=== PATIENT | female | born 1955 | race Caucasian/White ===

== ENCOUNTER → 2021-01-14 12:41 | Outpatient (CLI) | payer MEDICARE, OTHER, SELFPAY ==
--- NOTE | ~2021-01-14 | MM_ITS ---
EXAMINATION: MM screening disha BI w melva HISTORY: Screening TECHNIQUE: Craniocaudal and mediolateral oblique 3-D tomosynthesis images were obtained and synthetic 2-D images were generated. CAD analysis was submitted and interpreted. COMPARISON: Comparison to multiple prior studies sequentially, with oldest reviewed study dated 06/15. BREAST PARENCHYMAL COMPOSITION: There are scattered areas of fibroglandular density. FINDINGS: Stable bilateral breast asymmetries and calcifications. There is no evidence of suspicious mass, calcification, or architectural distortion to suggest malignancy in either breast. There has be en no suspicious interval change. IMPRESSION: 1. No mammographic evidence of malignancy. 2. Recommend routine screening mammography in one year. BI-RADS Category 2: Benign finding(s). Reviewed, dictated and finalized at location D. L MEAT PACKER
== END ==
PROVIDERS: PCP Family Medicine; Visit Provider Family Medicine
DX: Z12.31 Encounter for screening mammogram for malignant neoplasm of breast (principal)
CPT/HCPCS: 77063; 77067

== ENCOUNTER → 2021-01-26 12:02 | Outpatient (CLI) | payer MEDICARE, OTHER, SELFPAY ==
--- NOTE | ~2021-01-26 | DEXA_ITS ---
Bone Density Report Name: Carmelina Obrien Age: 65 Sex: Female Ethnicity: White Date of : 1955 Indication: postmenopausal osteoporosis; monitoring treatment; parental hip fracture; height loss; Referring Provider: Deidre Wong Study: Bone densitometry was performed. Exam Date: January 26, 2021 Accession number: [id number] Bone Density: Region BMD T-score Z-score Classification AP Spine (L1-L4) 0.959 -0.8 1.2 Normal Femoral Neck (Left) 0.564 -2.6 -0.9 Osteoporosis Total Hip (Left) 0.642 -2.5 -1.1 Osteoporosis Femoral Neck (Right) 0.708 -1.3 0.4 Osteopenia Total Hip (Right) 0.713 -1.9 -0.5 Osteopenia Total Hip Mean 0.678 -2.2 -0.8 Osteopenia World Health Organization criteria for BMD impression classify patients as: Normal (T-score at or above -1.0), Osteopenia (T-score between -1.0 and -2.5), or Osteoporosis (T-score at or below -2.5). 10-year Fracture Risk: FRAX not reported because: Some T-score for Spine Total or Hip Total or Femoral Neck at or below -2.5 Treated for osteoporosis Previous Exams: Region Exam Age BMD T-score BMD Change BMD Change Date g/cm2 vs Baseline vs Previous AP Spine(L1-L4) 01/26/2021 65 0.959 -0.8 0.048* 0.048* 09/22/2017 62 0.911 -1.2 Total Hip(Left) 01/26/2021 65 0.642 -2.5 0.014 0.014 09/22/2017 62 0.628 -2.6 Total Hip(Right) 01/26/2021 65 0.713 -1.9 0.022 0.022 09/22/2017 62 0.691 -2.1 *Denotes significance at 95% confidence level, LSC for AP Spine = 0.022 g/cm2, LSC for Total Hip = 0.027 g/cm2 Clinical Information Provided by Patient: Parent has had a hip fracture Smokes Is being treated for osteoporosis Has used the following medications: Fosamax (i.e. alendronate), Vitamin D, Calcium Patient maximum height was 66 Menopause Age: 48 Does not regularly consume dairy products Drinks caffeinated beverages Onset of menses at age 12 Number of children 3 Impression: The patient has osteoporosis, based on the Left Femoral Neck T-score. The patient has risk factors, including: parental hip fracture, smoking. No significant bone loss was observed. Discussion: PATIENT UNDER TREATMENT WITH NO SIGNIFICANT BMD LOSS SINCE LAST EXAM. In an untreated patient, BMD typically declines with age. A lack of decline or gain is usually a sign that treatment is efficacious and fracture risk is reduced. It is important to ask patients whether they a
== END ==
PROVIDERS: PCP Family Medicine; Visit Provider Family Medicine
DX: M81.0 Age-related osteoporosis without current pathological fracture (principal); M85.852 Other specified disorders of bone density and structure, left thigh
CPT/HCPCS: 77080

== ENCOUNTER → 2021-05-12 01:06 | Outpatient (CLI) | payer MEDICARE, OTHER, SELFPAY ==
[2021-05-12 17:24] LABS: SARS-CoV-2 RNA PCR Negative
== END ==
PROVIDERS: PCP Family Medicine; Visit Provider Internal Medicine Gastroenterology
DX: Z01.812 Encounter for preprocedural laboratory examination (principal); Z20.822 Contact with and (suspected) exposure to COVID-19
CPT/HCPCS: C9803; U0003; U0005

== ENCOUNTER 2021-05-15 00:30 | Day surgery (SDC) | payer MEDICARE, OTHER, SELFPAY ==
[2021-05-04 13:18] VITALS: BMI 24.9
[2021-05-15 08:00] VITALS: BP 142/65; PULSE 76; RESP 16; TEMP 36.1; O2SAT 98; BMI 25.0
[2021-05-15] MEDS: LACTATED RINGERS 1,000 ML 150 ML IV CONT (08:07)
--- NOTE | 2021-05-15 08:29 | PM.HPGS ---
History of Present Illness History of Present Illness Consent: Risks, benefits, and alternatives have been discussed and questions answered. Patient agrees to proceed with procedure. Chief complaint: hx colon polyp Narrative: Carmelina Obrien is a 66 year old female here for colon cancer screening. She has a family history of colon cancer and has had colon polyps herself Review of Systems Review of Systems: All systems reviewed & are unremarkable except as noted in HPI and below PMFSH Past Medical History Medical History Essential (primary) hypertension Family history of colon cancer in mother History of colon polyps Osteoporosis Other and unspecified hyperlipidemia Stress incontinence in female Vitamin D deficiency Surgical History Surgical History Hx of tonsillectomy (~1957) Family History Family History Father Family history of premature coronary heart disease, Onset Age: 63 Hypertension Family history of elevated blood lipids Patient's father is Family history of cardiovascular disease Mother Carcinoma of colon Patient's mother is Family history of Alzheimer's disease Grandparent Family history of malignant neoplasm of cervix Social History Social History Smoking packs per day: 1 Smoking cigarettes per day: 20.0 Years smoked: 30 Smoking pack-years: 30.00 Smoking status: Former smoker Tobacco type: e-cigarettes/vaping Smoking end date: 11/28/11 Alcohol intake: former Substance use: never Substance use type: does not use Living arrangements: with family Gender identity (if verbalized by the patient): Female Spiritual care concerns: No Meds Home Medications and Allergies Home Medications Medication Instructions Recorded Confirmed Type cholecalciferol (vitamin D3) 125 125 mcg PO DAILY 04/04/20 05/05/21 History mcg (5,000 unit) capsule ibuprofen 200 mg capsule 200 mg PO Q6H PRN 04/04/20 05/05/21 History biotin 10,000 mcg capsule 10,000 mcg PO DAILY cap 11/13/20 05/05/21 History calcium carbonate 600 mg calcium 600 mg PO BID tablet 11/13/20 05/05/21 History (1,500 mg) tablet Natural Vitamin E 180 mg PO DAILY 05/04/21 05/05/21 History cranberry 500 mg PO BID PRN 05/04/21 05/05/21 History magnesium oxide 400 mg PO DAILY 05/04/21 05/05/21 History alendronate 70 mg tablet 70 mg PO WEEKLY #14 tablet 05/07/21 Rx atorvastatin 10 mg tablet 10 mg PO DAILY #90 tablet 05/07/21 Rx losartan 25 mg tablet 12.5 mg PO DAILY #90 tablet 05/07/21 Rx Allergies Allergy/AdvReac Type Severity Reaction Status Date / Time strawberry Allergy Severe Difficulty Verified 05/15/21 07:59 Breathing Vital Signs Vital Signs - 24 hr 05/15/21 08:00 Temperature 36.1 C L Pulse Rate 76 Respiratory Rate 16 Blood Pressure 142/65 H Pulse Oximetry 98 Exam Resp: Auscultation: clear to auscultation bilaterally Cardio: Rate: regular rate Rhythm: regular rhythm GI: GI Palp: Yes Soft to palpation and No Tenderness to palpation present (GI) Assessment and Plan Assessment and plan (1) Colon cancer screening: Code(s): Z12.11 - Encounter for screening for malignant neoplasm of colon Status: Acute Assessment and Plan: Colonoscopy with possible biopsy or polypectomy or cautery or injection of substances.
--- NOTE | 2021-05-15 09:12 | WPDANESEPPF ---
Anes - Initial Pre Proc Eval Procedure: Operation Date: 05/15/21 09:00 Proposed Procedures p Screening Colonoscopy - Endy Lema MD Date/Time: 05/15/21 09:12 Surgeon: Endy Lema MD Pre Op Diagnosis: hx colon polyp Patient Data Age: 66 Gender: F Height: 5 ft 5 in Weight: 68.4 kg Last Vital Signs Temp 97 F L 05/15/21 08:00 Pulse 76 05/15/21 08:00 Resp 16 05/15/21 08:00 BP 142/65 H 05/15/21 08:00 Pulse Ox 98 05/15/21 08:00 Allergies Allergy/AdvReac Type Severity Reaction Status Date / Time strawberry Allergy Severe Difficulty Verified 05/15/21 07:59 Breathing Home Medications Medication Instructions Recorded Confirmed Type cholecalciferol (vitamin D3) 125 125 mcg PO DAILY 04/04/20 05/05/21 History mcg (5,000 unit) capsule ibuprofen 200 mg capsule 200 mg PO Q6H PRN 04/04/20 05/05/21 History biotin 10,000 mcg capsule 10,000 mcg PO DAILY cap 11/13/20 05/05/21 History calcium carbonate 600 mg calcium 600 mg PO BID tablet 11/13/20 05/05/21 History (1,500 mg) tablet Natural Vitamin E 180 mg PO DAILY 05/04/21 05/05/21 History cranberry 500 mg PO BID PRN 05/04/21 05/05/21 History magnesium oxide 400 mg PO DAILY 05/04/21 05/05/21 History alendronate 70 mg tablet 70 mg PO WEEKLY #14 tablet 05/07/21 Rx atorvastatin 10 mg tablet 10 mg PO DAILY #90 tablet 05/07/21 Rx losartan 25 mg tablet 12.5 mg PO DAILY #90 tablet 05/07/21 Rx Patient hx anesthesia problems: none Family hx anesthesia problems: none PMFSH Past Medical History Medical History Essential (primary) hypertension Family history of colon cancer in mother History of colon polyps Osteoporosis Other and unspecified hyperlipidemia Stress incontinence in female Vitamin D deficiency Surgical History Surgical History Hx of tonsillectomy (~1957) Family History Family History Father Family history of premature coronary heart disease, Onset Age: 63 Hypertension Family history of elevated blood lipids Patient's father is Family history of cardiovascular disease Mother Carcinoma of colon Patient's mother is Family history of Alzheimer's disease Grandparent Family history of malignant neoplasm of cervix Social History Social History Smoking packs per day: 1 Smoking cigarettes per day: 20.0 Years smoked: 30 Smoking pack-years: 30.00 Smoking status: Former smoker Tobacco type: e-cigarettes/vaping Smoking end date: 11/28/11 Alcohol intake: former Substance use: never Substance use type: does not use Living arrangements: with family Gender identity (if verbalized by the patient): Female Spiritual care concerns: No Anes - Eval Final PreProcedure Day of Procedure 05/15/21 09:12 Patient weight: overweight Heart: regular rate and rhythm Lungs: clear to auscultation Airway: Mallampati scale class II Neurological: alert and oriented Last oral intake: >/= 8 hours ASA classification: III Emergent: no Anesthetic plan: proceed Anesthesia type and monitoring: general GIVS and standard monitoring Informed Consent: The patient's anesthetic plan and its attendant risks and benefits were discussed with the patient/family/POA. Questions were solicited and answers provided to the satisfaction of the patient/family/POA.
[2021-05-15 09:27] VITALS: BP 106/59; PULSE 78; RESP 16; O2SAT 96
[2021-05-15 09:37] VITALS: BP 112/65; PULSE 76; RESP 16; O2SAT 100
[2021-05-15 09:47] VITALS: BP 120/64; PULSE 75; RESP 18; O2SAT 100
== END 2021-05-15 10:00 | disposition home or self-care (01) ==
PROVIDERS: PCP Family Medicine; Visit Provider Internal Medicine Gastroenterology
PROC: 0DJD8ZZ Inspection of Lower Intestinal Tract, Via Natural or Artificial Opening Endoscopic (ICD-10-PCS; CPT 45378; principal; 2021-05-15 09:00)
DX: Z12.11 Encounter for screening for malignant neoplasm of colon (principal); K57.30 Diverticulosis of large intestine without perforation or abscess without bleeding; Z86.010 Personal history of colon polyps; Z80.0 Family history of malignant neoplasm of digestive organs; I10 Essential (primary) hypertension; M81.0 Age-related osteoporosis without current pathological fracture; E78.5 Hyperlipidemia, unspecified; N39.3 Stress incontinence (female) (male); E55.9 Vitamin D deficiency, unspecified; Z87.891 Personal history of nicotine dependence
CPT/HCPCS: G0105; J2704; J7120

== ENCOUNTER → 2021-12-07 13:23 | Outpatient (CLI) | payer MEDICARE, OTHER, SELFPAY ==
--- NOTE | ~2021-12-07 | XR_ITS ---
EXAMINATION: XR chest 2V DATE: 12/07/2021 13:35 INDICATION: Cough, unspecified. TECHNIQUE: Frontal and lateral views of the chest were obtained. COMPARISON: None. FINDINGS: There is a 2.0 cm nodule in right middle lobe. No pleural effusion or pneumothorax. The hea rt size is normal. IMPRESSION: 1. 2.0 cm nodule in right lung middle lobe suspicious for primary bronchogenic carcinoma. Noncontras t chest CT is recommended. I called this result to Tanvi Travis. Reviewed, dictated and finalized at location B. SHIFT MANAGER IMPRESSION: 1. 2.0 cm nodule in right lung middle lobe suspicious for primary bronchogenic carcinoma. Noncontrast chest CT is recommended. I called this result to Tanvi hinkle.
== END ==
PROVIDERS: PCP Family Medicine; Visit Provider Nurse Practitioner Family
DX: R05.9 Cough, unspecified (principal); R91.1 Solitary pulmonary nodule
CPT/HCPCS: 71046

== ENCOUNTER 2021-12-11 09:40 | Outpatient (CLI) | payer MEDICARE, OTHER, SELFPAY ==
--- NOTE | ~2021-12-11 | CT_ITS ---
EXAMINATION: CT diagnostic chest wo con EXAM DATE: 12/11/2021 10:10 INDICATION: Right lung nodule noted on CXR . TECHNIQUE: Spiral CT of the chest without contrast. Axial, coronal and sagittal images of the chest were reviewed. Coronal maximum intensity pixel images of chest reviewed. The dose-length product ( DLP) for this examination was 72.25 mGy-cm. The exposure was tailored according to patient size (aut o mA exposure control), and iterative reconstruction (ASIR) was used as additional dose reduction brad hnique. Correlation is made to chest x-ray 12/07/2021. FINDINGS: There is low-density 1.5 x 1.7 cm round nodule which is most likely a right middle lobe me dial segmental pleural-based intraparenchymal nodule abutting the right epicardial fat and pericardiu m. Location would make percutaneous biopsy difficult. There is moderate hyperinflation. Mild emphysema. There are no pleural or pericardial effusions. Tr acheobronchial tree is patent. There is no mediastinal, hilar or axillary lymphadenopathy. There is no pneumothorax. Heart normal in size. There is moderate to severe coronary arterial calcifica tion, arterial sclerosis. Upper abdomen is unremarkable. There is thoracic spondylosis without ost eoblastic or osteolytic lesions identified. IMPRESSION: 1. Indeterminate right middle lobe nodule; recommend PET/CT for further evaluation. 2. Moderate hyperinflation, mild emphysema. Reviewed, dictated and finalized at location A. CTOR OF MEDIA IMPRESSION: 1. Indeterminate right middle lobe nodule; recommend PET/CT for further evalua tion. 2. Moderate hyperinflation, mild emphysema.
== END 2021-12-11 09:41 | disposition home or self-care (01) ==
LOC: ANHIMG 09:46
PROVIDERS: PCP Family Medicine; Visit Provider Nurse Practitioner Family
DX: R91.1 Solitary pulmonary nodule (principal); R91.8 Other nonspecific abnormal finding of lung field
CPT/HCPCS: 71250

== ENCOUNTER 2021-12-17 09:02 | Outpatient (CLI) | payer MEDICARE, OTHER, SELFPAY ==
--- NOTE | ~2021-12-17 | PE_ITS ---
EXAMINATION: PET skull to mid thigh DATE: 12/17/2021 10:50 INDICATION: Solitary pulmonary nodule TECHNIQUE: Blood glucose level was 100 mg/dL. 11.02 mCi of 18-fluorodeoxyglucose (18-FDG) was adminis tered i.v. Low dose computed tomography (CT) images were acquired from the base of the brain to the p roximal thighs for attenuation correction and anatomic localization. Positron emission tomography (PE T) images were acquired in the same distribution beginning 64 minutes after injection. Images includi ng fused PET/CT images were reconstructed in axial, coronal, and sagittal planes. Automated exposure control technique was employed. The dose-length product was 488.95mGy-cm. COMPARISON: Chest CT dated 12/11/2021 FINDINGS: Head/neck: There is symmetric increased activity in the oral cavity, palatine tonsils, parotid glands, submandi bular glands, laryngeal muscles and ocular muscles without CT correlate, likely physiologic. Subcenti meter partially rim calcified nodules in the right thyroid lobe. There is a small focus of mild incre ased FDG uptake with maximal severe 3.8 the inferior right thyroid lobe. No pathologically enlarged c ervical lymphadenopathy or other suspicious foci of increased FDG uptake in the visualized head or ne ck. Chest: No FDG activity associated with a 1.8 x 1.5 cm nodule in the right middle lobe which demonstrates flu id or slightly less than fluid attenuation with differential including hamartoma and either pericardi al or foregut duplication cyst. Motion artifact at the lung bases. No other suspicious pulmonary nodu les, pneumonia, pulmonary edema or pleural effusion. Calcified left infrahilar nodule consistent with old granulomatous disease. Heart size is normal. Atherosclerotic coronary artery calcification. No p ericardial effusion. Thoracic aorta is normal in caliber. No pathologically enlarged for FDG avid tho racic lymphadenopathy. Asymmetric mild diffuse increased synovial uptake at the right glenohumeral ana int. Abdomen/pelvis/proximal thighs: Physiologic renal accumulation and excretion of FDG activity in the kidneys, bladder and along portio ns of ureters. Normal degree and heterogenous pattern of increased uptake throughout the liver withou t radiologic correlate or dominant FDG avid lesion. The gallbladder, pancreas and bilateral adrenal g lands are normal. Small splenic calcification consistent with old granulomatous disease. Moderate upt denise along the distal sigmoid colon and mild 7 x 4 x 3 cm uptake scattered throughout the remainder of the bowels without radiologic correlate, also likely physiologic. No other abnormal foci of increase d FDG uptake or pathologically enlarged lymphadenopathy in the abdomen, pelvis or proximal thighs. Musculoskeletal: Intramuscular lipoma in the right gluteus kaycee muscle. Mild cervical thoracic dextro curvature wit h multilevel mild to moderate right-sided and severe left-sided cervical facet osteoarthritis. No alix picious lytic, blastic or FDG avid bone lesions. IMPRESSION: 1. No FDG uptake associated with a relatively low-attenuation 1.8 cm right middle lobe nodule with di fferential including hamartoma, pericardial cyst or foregut dictation cyst. Reviewed, dictated and finalized at location A. TRUCTION JOB COST ESTIMATOR IMPRESSION: 1. No FDG uptake associated with a relatively low-attenuation 1.8 cm right midd le lobe nodule with differential including hamartoma, pericardial cyst or foreg ut dictation cyst.
[2021-12-17 09:20] LABS: Glucose Point of Care 100 mg/dl (65-105)
== END 2021-12-17 09:03 | disposition home or self-care (01) ==
LOC: ANHIMG 09:04
PROVIDERS: PCP Family Medicine; Visit Provider Nurse Practitioner Family
DX: R91.1 Solitary pulmonary nodule (principal)
CPT/HCPCS: 78815; A9552

== ENCOUNTER 2022-04-16 10:13 | Emergency (ER) | payer MEDICARE, OTHER, SELFPAY ==
--- NOTE | ~2022-04-16 | XR_ITS ---
EXAMINATION: XR chest 2V 04/16/2022 10:42 INDICATION: Cough and shortness of breath PROCEDURE: 2 view chest COMPARISON: 12/07/2021 FINDINGS: The lungs are clear. The cardiomediastinal silhouette is within normal limits. There are no pleural effusions. There is no pneumothorax suspected. Stable 2 cm right middle lobe nodule, lik jennifer benign. IMPRESSION: 1: NO ACUTE CARDIOPULMONARY DISEASE. 2: Stable 2 cm right middle lobe nodule, likely benign. Reviewed, dictated and finalized at location B.
[2022-04-16 10:21] VITALS: BP 221/93; PULSE 102; RESP 18; TEMP 36.2; O2SAT 96
[2022-04-16 10:23] VITALS: PULSE 78; RESP 18; O2SAT 99
--- NOTE | 2022-04-16 10:26 | ED.URI ---
HPI - URI/Sore Throat General Chief Complaint: Upper Respiratory Infection Stated Complaint: COUGH/SOB Time Seen by Provider: 04/16/22 10:26 Source: patient Mode of arrival: ambulatory Limitations: no limitations History of Present Illness HPI Narrative: 67-year-old female presented for complaint of cough, chest tightness, and shortness of breath for at least 1 week. She endorses cough is productive of white sputum, audible wheezing. She states she was given an inhaler for similar symptoms in November, has been taking the inhaler every 4 hours, but states it only last for 1 hour and then she has 3 hours of coughing. She has decreased appetite due to frequency of coughing. She denies nausea, vomiting, diarrhea, fevers or chills. She has not vaped in one month. Former smoker. She is not boosted for covid. Refuses flu and pneumonia vaccinations. Of note, she is aware of a nodule on right lung for which she is scheduled to see thoracic surgeon but has been told it is likely benign. Related Data Home Medications Medication Instructions Recorded Confirmed cholecalciferol (vitamin D3) 125 125 mcg PO DAILY 04/04/20 04/16/22 mcg (5,000 unit) capsule ibuprofen 200 mg capsule 200 mg PO Q6H PRN 04/04/20 04/16/22 biotin 10,000 mcg capsule 10,000 mcg PO DAILY cap 11/13/20 04/16/22 calcium carbonate 600 mg calcium 600 mg PO BID tablet 11/13/20 04/16/22 (1,500 mg) tablet Natural Vitamin E 180 mg PO DAILY 05/04/21 04/16/22 cranberry 500 mg PO BID PRN 05/04/21 04/16/22 magnesium oxide 400 mg PO DAILY 05/04/21 04/16/22 Allergies Allergy/AdvReac Type Severity Reaction Status Date / Time strawberry Allergy Severe Difficulty Verified 04/16/22 10:31 Breathing Review of Systems Review of Systems: CONSTITUTIONAL: Denies body aches, fever, chills, or sweats. EYES: Denies visual changes, redness, or discharge. ENT: Denies rhinorrhea, congestion, sore throat, or otalgia. CARDIOVASCULAR: Denies palpitations, or edema. RESPIRATORY: reports cough, dyspnea. GASTROINTESTINAL: Denies abdominal pain, nausea, vomiting, or diarrhea. GENITOURINARY: Denies dysuria or hematuria. SKIN: Denies rash, itching, or wounds. MUSCULOSKELETAL: Denies back pain, joint pain, or myalgia. NEUROLOGIC: Denies headache, numbness, tingling, or weakness. All systems reviewed & are unremarkable except as noted in HPI and below PMFSH Past Medical History Medical History Essential (primary) hypertension Family history of colon cancer in mother History of colon polyps Osteoporosis Other and unspecified hyperlipidemia Stress incontinence in female Vitamin D deficiency Surgical History Surgical History Hx of tonsillectomy (~1957) Family History Family History Father Family history of premature coronary heart disease, Onset Age: 63 Hypertension Family history of elevated blood lipids Patient's father is Family history of cardiovascular disease Mother Carcinoma of colon Patient's mother is Family history of Alzheimer's disease Grandparent Family history of malignant neoplasm of cervix Social History Social History Smoking packs per day: 1 Smoking cigarettes per day: 20.0 Years smoked: 30 Smoking pack-years: 30.00 Smoking status: Former smoker Tobacco type: e-cigarettes/vaping Smoking end date: 11/28/11 Alcohol intake: former Substance use: never Substance use type: does not use Gender identity (if verbalized by the patient): Female Spiritual care concerns: No Comments At time of signature, I have reviewed and agree with nursing past medical, surgical, social and family history unless otherwise noted. Please see nursing chart for further information. There is no relevant family
[2022-04-16] MEDS: ALBUTEROL SULFATE NEB 2.5 MG/3 ML INH INHALATION (11:17)
[2022-04-16] MEDS: IPRATROPIUM BR 0.02% INH SOLN 0.5 MG/2.5 ML VIAL INHALATION (11:17)
[2022-04-16 11:51] VITALS: BP 180/72; PULSE 104
--- NOTE | 2022-04-16 11:54 | PC.NURSE ---
PT AUDIBLE WHEEZES HAVE RESOLVED, HOWEVER WHEEZES THROUGHOUT STILL NOTED. PT REPORTS SHE CAN BREATHE MUCH BETTER.
[2022-04-16 11:55] VITALS: PULSE 104; RESP 18; O2SAT 99
== END 2022-04-16 11:45 | disposition home or self-care (01) ==
PROVIDERS: Emergency Provider Nurse Practitioner Family; PCP Family Medicine
DX: R05.9 Cough, unspecified (principal); J40 Bronchitis, not specified as acute or chronic; I10 Essential (primary) hypertension; E78.5 Hyperlipidemia, unspecified; M81.0 Age-related osteoporosis without current pathological fracture
CPT/HCPCS: 71046; 94640; 99213; G0463

== ENCOUNTER 2022-06-01 07:43 | Outpatient (CLI) | payer MEDICARE, OTHER, SELFPAY ==
--- NOTE | 2022-06-01 13:09 | WPDPFTINT ---
PFT Procedure Performed PFT Procedure Performed Spirometry with Pre/Post Bronchodilator Plethysmography (Lung Vol) Diffusing Cap (DLCO) Flow Vol Loop PFT Interpretation This is a pulmonary function test with pre and post-bronchodilator spirometry, plethysmography and diffusing capacity. The test was performed and results interpreted in accordance with the 2019 and 2005 ATS/ERS Task Force guidelines respectively using the Global Lung Function Initiative-2012 reference equations. Patient demonstrated good effort and cooperation. Reproducibility criteria were met. The quality of the pre bronchodilator spirometry maneuver was Grade A and post bronchodilator spirometry maneuver was Grade A. Findings: Spirometry: The contour the inspiratory and expiratory flow tracing are normal. The pre bronchodilator FVC is 3.25 L, 107% predicted. The pre bronchodilator FEV1 is 2.29 L, 98% predicted. The FEV1: FVC ratio was 71%. The post bronchodilator FVC is 3.06 L, representing a 6% decrease. The post bronchodilator FEV1 is 2.45 L, representing a 7% increase. The post bronchodilator FEV1: FVC ratio was 80%. Plethysmography: The total lung capacity is 5.16 L, 98% predicted. The functional residual capacity is 2.81 L, 94% predicted. The residual volume is 1.75 L, 78% predicted. Diffusion capacity: The diffusion capacity unadjusted for hemoglobin and carboxyhemoglobin is 17.1, 81% predicted. The diffusing capacity adjusted for alveolar volume is 4.07, 96% predicted. Impression: The spirometry is normal without evidence of an obstructive abnormality. There is no significant improvement after inhaling a single dose of albuterol. The lung volumes are normal. The diffusing capacity is normal. There are no prior studies for comparison
== END 2022-06-01 07:44 | disposition home or self-care (01) ==
LOC: ANHPFT 07:44
PROVIDERS: PCP Family Medicine; Visit Provider Internal Medicine Pulmonary Disease
DX: J45.909 Unspecified asthma, uncomplicated (principal)
CPT/HCPCS: 94060; 94726; 94729

== ENCOUNTER 2022-08-06 10:47 | Outpatient (CLI) | payer MEDICARE, OTHER, SELFPAY ==
--- NOTE | ~2022-08-06 | XR_ITS ---
EXAMINATION: XR chest 2V DATE: 08/06/2022 11:05 INDICATION: Solitary pulmonary nodule. TECHNIQUE: Frontal and lateral views of the chest were obtained. COMPARISON: Chest 2 views 04/16/2022, 12/07/2021, chest CT 12/11/2021 FINDINGS: There is a 2 cm nodule in right middle lobe. A calcified left lung nodule and calcified par aesophageal lymph node are consistent with old granulomas disc disease. No pleural effusion or pneumo thorax. The heart size is normal. IMPRESSION: 1. 2 cm nodule in right lung middle lobe, stable from 12/07/2021, likely benign. Noncontrast low-dose chest CT is recommended in one year. Reviewed, dictated and finalized at location A.
== END 2022-08-06 10:48 | disposition home or self-care (01) ==
PROVIDERS: PCP Family Medicine; Visit Provider Internal Medicine Pulmonary Disease
DX: R91.1 Solitary pulmonary nodule (principal)
CPT/HCPCS: 71046

== ENCOUNTER 2022-12-31 14:29 | Outpatient (CLI) | payer MEDICARE, OTHER, SELFPAY ==
--- NOTE | ~2022-12-31 | XR_ITS ---
EXAMINATION: XR chest 2V DATE: 12/31/2022 14:49 INDICATION: Solitary pulmonary nodule. TECHNIQUE: Frontal and lateral views of the chest were obtained. COMPARISON: Chest 2 views 08/06/2022, 12/07/21, PET/CT 12/17/2021, chest CT 12/11/21 FINDINGS: A calcified left lung nodule and calcified left hilar lymph nodes are consistent with old g ranulomatous disease. There is a 2 cm nodule in right middle lobe. No pleural effusion or pneumothora x. The heart size is normal. IMPRESSION: 1. Stable 2 cm nodule in right lung middle lobe, likely a hamartoma. Reviewed, dictated and finalized at location A. E CHARGE RN
== END 2022-12-31 14:30 | disposition home or self-care (01) ==
PROVIDERS: PCP Family Medicine; Visit Provider Internal Medicine Pulmonary Disease
DX: R91.1 Solitary pulmonary nodule (principal)
CPT/HCPCS: 71046

== ENCOUNTER 2023-05-27 10:38 | Outpatient (CLI) | payer MEDICARE, OTHER, SELFPAY ==
[2023-05-27 15:22] LABS: Basophils Absolute Auto 0.1 K/mm3 (0.0-0.1); Basophils Percent Auto 1.6 % (0.2-1.2); Eosinophils Absolute Auto 0.5 K/mm3 (0-0.3); Eosinophils Percent Auto 8.4 % (0-4.4); Hematocrit 45.8 % (37.0-47.0); Hemoglobin 14.8 g/dL (12.0-15.0); Immature Granulocyte Absolute 0.02 K/mm3 (0.00-0.031); Immature Granulocyte Percent A 0.3 % (0-0.5); Lymphocytes Absolute Auto 1.22 K/mm3 (0.9-3.2); Lymphocytes Percent Auto 20.1 % (18.3-44.2); Mean Corpuscular HGB Conc 32.3 g/dl (32-36); Mean Corpuscular Hemoglobin 29.3 pg (26-34); Mean Corpuscular Volume 90.7 fl (80-100); Mean Platelet Volume 10.6 fl (7.4-10.4); Monocytes Absolute Auto 0.7 K/mm3 (0.1-0.6); Monocytes Percent Auto 11.2 % (2.6-8.5); Neutrophils Absolute Auto 3.5 K/mm3 (1.3-6.7); Neutrophils Percent Auto 58.4 % (45.5-73.1); Platelet Count Result 283 k/mm3 (150-375); Red Blood Count 5.05 M/mm3 (4.2-5.4); Red Cell Distribution Width 12.7 % (11.5-14.5); White Blood Count 6.1 K/mm3 (4.5-10.0)
[2023-05-27 15:43] LABS: Anion Gap 4 mmol/L (8-16); Blood Urea Nitrogen 9 mg/dL (7-17); Calcium 9.7 mg/dL (8.4-10.2); Carbon Dioxide 34 mmol/L (22-30); Chloride 99 mmol/L (98-107); Estimated Glomerular Filt Rate > 60; Glucose 105 mg/dL (65-110); Potassium 4.7 mmol/L (3.4-5.0); Sodium 137 mmol/L (137-145)
[2023-05-27 15:44] LABS: Alanine Aminotransferase 15 U/L (6-35); Albumin Level 4.6 g/dL (3.5-5.1); Alkaline Phosphatase 86 U/L (38-126); Aspartate Amino Transferase 31 U/L (14-36); Cholesterol 259 mg/dL (0-200); HDL Direct 64 mg/dL; Triglycerides 76 mg/dL (<150)
[2023-05-27 15:54] LABS: LDL Cholesterol Direct 160 mg/dL
== END 2023-05-27 10:39 | disposition home or self-care (01) ==
LOC: ANHGOSHLAB 10:39
PROVIDERS: PCP Family Medicine; Visit Provider Nurse Practitioner Family
DX: E78.5 Hyperlipidemia, unspecified (principal); I10 Essential (primary) hypertension
CPT/HCPCS: 36415; 80053; 80061; 85025

== ENCOUNTER 2023-06-28 12:52 | Emergency (ER) | payer MEDICARE, OTHER, SELFPAY ==
[2023-06-28 13:04] VITALS: BP 190/117; PULSE 112; RESP 16; TEMP 36.9; O2SAT 100
--- NOTE | 2023-06-28 13:09 | ED.SKABFB ---
HPI - Skin/Abscess/Foreign Bdy General Chief complaint: Skin/Abscess/Foreign Body Stated complaint: Bee sting; Swollen foot and ankle Source: patient and RN notes reviewed History of Present Illness HPI narrative: 68 yo F presents to urgent care with complaints of left foot swelling and redness. Pt states yesterday she stepped on what she thinks was a bee. Pt states she was stung on the underside of her left 2nd toe. Pt states she now has redness, itching, and pain that is traveling up her lower leg. Pt has taken Benadryl PO and topically without relief. Denies any fevers, chills, vomiting, SOB, or chest pain. Related Data Home Medications Medication Instructions Recorded Confirmed cholecalciferol (vitamin D3) 125 125 mcg PO DAILY 04/04/20 06/28/23 mcg (5,000 unit) capsule ibuprofen 200 mg capsule 200 mg PO Q6H PRN Pain 04/04/20 06/28/23 biotin 10,000 mcg capsule 10,000 mcg PO DAILY 11/13/20 06/28/23 calcium carbonate 600 mg calcium 600 mg PO BID 11/13/20 06/28/23 (1,500 mg) tablet (Calcium) Natural Vitamin E 180 mg PO DAILY 05/04/21 06/28/23 cranberry 500 mg capsule 500 mg PO BID PRN Bladder Spasms 05/04/21 06/28/23 magnesium oxide 400 mg PO DAILY 05/04/21 06/28/23 Allergies Allergy/AdvReac Type Severity Reaction Status Date / Time strawberry Allergy Severe Difficulty Verified 06/28/23 12:59 Breathing Review of Systems Review of Systems: CONSTITUTIONAL: Denies fever, chills, or sweats. EYES: Denies visual changes, redness, or discharge. ENT: Denies otalgia and sore throat CARDIOVASCULAR: Denies chest pain, palpitations, or edema. RESPIRATORY: Denies cough or dyspnea. GASTROINTESTINAL: Denies abdominal pain, nausea, vomiting, or diarrhea. GENITOURINARY: Denies dysuria or hematuria. SKIN: red and itchy left foot MUSCULOSKELETAL: Denies back pain, joint pain, or myalgia. NEUROLOGIC: Denies headache, numbness, or weakness. Pertinent positives per HPI. [facility] Past Medical History Medical History (Updated 06/28/23 @ 13:14 by Deb Vicente, ORTHOTIST/PROSTHETIST) Essential (primary) hypertension Family history of colon cancer in mother History of colon polyps Lipoma Osteoporosis Other and unspecified hyperlipidemia Stress incontinence in female Vitamin D deficiency Surgical History Surgical History Hx of tonsillectomy (~1957) Family History Family History Father Family history of premature coronary heart disease, Onset Age: 63 Hypertension Family history of elevated blood lipids Patient's father is Family history of cardiovascular disease Mother Carcinoma of colon Patient's mother is Family history of Alzheimer's disease Grandparent Family history of malignant neoplasm of cervix Social History Social History Smoking packs per day: 1 Smoking cigarettes per day: 20.0 Years smoked: 30 Smoking pack-years: 30.00 Smoking status: Former smoker Tobacco type: e-cigarettes/vaping Smoking end date: 11/28/11 Alcohol intake: former Substance use: never Substance use type: does not use Lack of Transportation: No Lack of Food: Never True Current Housing: I Have Housing Concerned About Future Housing: No Difficulty Paying Gas/Electric Bills: No Difficulty Paying for Meds: No Currently Unemployed: No Education: Associate Degree Difficulty w/ Childcare or Family Care: No Living arrangements: with family Additional living arrangements comments: Occupation/Education: retired Gender identity (if verbalized by the patient): Female Sexual Orientation (if Verbalized by the Patient): Straight or Heterosexual Spiritual care concerns: No Agree to blood products: Yes Comments At the time of my signature, I reviewed and agree with the nursing past medical, surgical, social
[2023-06-28 13:19] VITALS: BP 162/95
[2023-06-28] MEDS: predniSONE 20 MG TABLET 60 MG PO (13:19)
== END 2023-06-28 13:19 | disposition home or self-care (01) ==
PROVIDERS: Emergency Provider Nurse Practitioner Family; PCP Family Medicine
DX: T63.441A Toxic effect of venom of bees, accidental (unintentional), initial encounter (principal); I10 Essential (primary) hypertension; M81.0 Age-related osteoporosis without current pathological fracture; E78.49 Other hyperlipidemia; E55.9 Vitamin D deficiency, unspecified
CPT/HCPCS: 99213; G0463; J7512

== ENCOUNTER 2023-07-19 09:58 | Outpatient (CLI) | payer MEDICARE, OTHER, SELFPAY ==
--- NOTE | ~2023-07-19 | XR_ITS ---
EXAMINATION: XR chest 2V DATE: 07/19/2023 10:17 INDICATION: Lung nodule TECHNIQUE: PA and lateral views of the chest are obtained. COMPARISON: 12/31/2022 FINDINGS: There is a stable 2 cm nodule of the right middle lobe. The lungs are free of acute opaciti es. No pleural effusion or pneumothorax. The cardiomediastinal silhouette is normal. There is mild th oracic spondylosis. IMPRESSION: 1. Stable 2 cm nodule of the right middle lobe. Reviewed, dictated and finalized at location A.
== END 2023-07-19 09:59 | disposition home or self-care (01) ==
PROVIDERS: PCP Family Medicine; Visit Provider Internal Medicine Pulmonary Disease
DX: R91.1 Solitary pulmonary nodule (principal)
CPT/HCPCS: 36415; 71046; 85025

== ENCOUNTER 2023-07-19 10:51 | Outpatient (CLI) | payer MEDICARE, OTHER, SELFPAY ==
[2023-07-19 14:24] LABS: Basophils Absolute Auto 0.1 K/mm3 (0.0-0.1); Basophils Percent Auto 1.6 % (0.2-1.2); Eosinophils Absolute Auto 0.4 K/mm3 (0-0.3); Eosinophils Percent Auto 6.2 % (0-4.4); Hematocrit 45.8 % (37.0-47.0); Immature Granulocyte Absolute 0.04 K/mm3 (0.00-0.031); Immature Granulocyte Percent A 0.6 % (0-0.5); Lymphocytes Absolute Auto 1.46 K/mm3 (0.9-3.2); Lymphocytes Percent Auto 23.2 % (18.3-44.2); Mean Corpuscular HGB Conc 32.8 g/dl (32-36); Mean Corpuscular Hemoglobin 29.2 pg (26-34); Mean Corpuscular Volume 89.1 fl (80-100); Mean Platelet Volume 10.4 fl (7.4-10.4); Monocytes Absolute Auto 0.9 K/mm3 (0.1-0.6); Monocytes Percent Auto 13.8 % (2.6-8.5); Neutrophils Absolute Auto 3.4 K/mm3 (1.3-6.7); Neutrophils Percent Auto 54.6 % (45.5-73.1); Platelet Count Result 310 k/mm3 (150-375); Red Blood Count 5.14 M/mm3 (4.2-5.4); Red Cell Distribution Width 12.4 % (11.5-14.5); White Blood Count 6.3 K/mm3 (4.5-10.0)
== END 2023-07-19 10:52 | disposition home or self-care (01) ==
PROVIDERS: PCP Family Medicine; Visit Provider Nurse Practitioner Family
DX: D72.828 Other elevated white blood cell count (principal)
CPT/HCPCS: 36415; 85025

== ENCOUNTER 2023-11-25 10:50 | Outpatient (CLI) | payer MEDICARE, OTHER, SELFPAY ==
[2023-11-25 13:24] LABS: Basophils Absolute Auto 0.1 K/mm3 (0.0-0.1); Basophils Percent Auto 1.4 % (0.2-1.2); Eosinophils Absolute Auto 0.7 K/mm3 (0-0.3); Hematocrit 47.1 % (37.0-47.0); Hemoglobin 15.2 g/dL (12.0-15.0); Immature Granulocyte Absolute 0.02 K/mm3 (0.00-0.031); Immature Granulocyte Percent A 0.3 % (0-0.5); Lymphocytes Absolute Auto 1.41 K/mm3 (0.9-3.2); Mean Corpuscular HGB Conc 32.3 g/dl (32-36); Mean Corpuscular Hemoglobin 29.5 pg (26-34); Mean Corpuscular Volume 91.3 fl (80-100); Mean Platelet Volume 10.6 fl (7.4-10.4); Monocytes Absolute Auto 0.8 K/mm3 (0.1-0.6); Monocytes Percent Auto 9.6 % (2.6-8.5); Neutrophils Absolute Auto 4.9 K/mm3 (1.3-6.7); Neutrophils Percent Auto 61.7 % (45.5-73.1); Platelet Count Result 341 k/mm3 (150-375); Red Blood Count 5.16 M/mm3 (4.2-5.4); Red Cell Distribution Width 12.8 % (11.5-14.5); White Blood Count 7.9 K/mm3 (4.5-10.0)
[2023-11-25 14:07] LABS: Thyroid Stimulating Hormone 0.784 uIU/mL (0.465-4.680)
[2023-11-25 14:23] LABS: Alanine Aminotransferase 12 U/L (6-35); Albumin Level 4.5 g/dL (3.5-5.1); Alkaline Phosphatase 88 U/L (38-126); Anion Gap 7 mmol/L (8-16); Aspartate Amino Transferase 48 U/L (14-36); Bilirubin,Total 0.9 mg/dL (0.2-1.3); Blood Urea Nitrogen 16 mg/dL (7-17); Calcium 9.5 mg/dL (8.4-10.2); Carbon Dioxide 30 mmol/L (22-30); Chloride 102 mmol/L (98-107); Cholesterol 212 mg/dL (0-200); Estimated Glomerular Filt Rate > 60; Glucose 105 mg/dL (65-110); HDL Direct 64 mg/dL; Potassium 4.2 mmol/L (3.4-5.0); Sodium 139 mmol/L (137-145); Triglycerides 79 mg/dL (<150); Vitamin D 25 Hydroxy 62.6 ng/mL
[2023-11-25 14:31] LABS: LDL Cholesterol Direct 109 mg/dL
[2023-11-25 15:30] LABS: Hemoglobin A1C 5.6 % (<5.7)
== END 2023-11-25 10:51 | disposition home or self-care (01) ==
LOC: ANHGOSHLAB 10:52
PROVIDERS: PCP Family Medicine; Visit Provider Nurse Practitioner Family
DX: E78.5 Hyperlipidemia, unspecified (principal); E55.9 Vitamin D deficiency, unspecified; R73.03 Prediabetes; N39.3 Stress incontinence (female) (male); Z13.29 Encounter for screening for other suspected endocrine disorder
CPT/HCPCS: 36415; 80053; 80061; 82306; 83036; 84443; 85025

== ENCOUNTER 2024-01-04 09:40 | Outpatient (CLI) | payer MEDICARE, OTHER, SELFPAY ==
--- NOTE | ~2024-01-04 | XR_ITS ---
Clinical Indication: Pulmonary nodule PA and lateral views of the chest: Comparison: 07/19/2023 Findings: Stable 2 cm nodule anteriorly on the lateral view. Stable calcified left basilar granuloma. Cardiomediastinal silhouette is within normal limits. Bones and soft tissues are unremarkable. Impression: Stable 2 cm nodule anteriorly on lateral view. Reviewed, dictated and finalized at [facility]. K SELECTOR Impression: Stable 2 cm nodule anteriorly on lateral view.
== END 2024-01-04 09:41 | disposition home or self-care (01) ==
LOC: ANHIMG 09:42
PROVIDERS: PCP Family Medicine; Visit Provider Internal Medicine Pulmonary Disease
DX: R91.1 Solitary pulmonary nodule (principal)
CPT/HCPCS: 71046

== ENCOUNTER 2024-07-03 09:27 | Outpatient (CLI) | payer MEDICARE, OTHER, SELFPAY ==
[2024-07-03 14:19] LABS: Basophils Absolute Auto 0.1 K/mm3 (0.0-0.1); Basophils Percent Auto 1.8 % (0.2-1.2); Eosinophils Absolute Auto 0.5 K/mm3 (0-0.3); Eosinophils Percent Auto 8.3 % (0-4.4); Hematocrit 46.4 % (37.0-47.0); Hemoglobin 14.9 g/dL (12.0-15.0); Immature Granulocyte Absolute 0.02 K/mm3 (0.00-0.031); Immature Granulocyte Percent A 0.3 % (0-0.5); Lymphocytes Absolute Auto 1.23 K/mm3 (0.9-3.2); Lymphocytes Percent Auto 20.4 % (18.3-44.2); Mean Corpuscular HGB Conc 32.1 g/dl (32-36); Mean Corpuscular Hemoglobin 29.2 pg (26-34); Mean Corpuscular Volume 90.8 fl (80-100); Monocytes Absolute Auto 0.6 K/mm3 (0.1-0.6); Monocytes Percent Auto 9.8 % (2.6-8.5); Neutrophils Absolute Auto 3.6 K/mm3 (1.3-6.7); Neutrophils Percent Auto 59.4 % (45.5-73.1); Platelet Count Result 330 k/mm3 (150-375); Red Blood Count 5.11 M/mm3 (4.2-5.4); Red Cell Distribution Width 12.7 % (11.5-14.5)
[2024-07-03 14:29] LABS: Alanine Aminotransferase 10 U/L (6-35); Albumin Level 4.7 g/dL (3.5-5.1); Alkaline Phosphatase 84 U/L (38-126); Anion Gap 9 mmol/L (4-12); Aspartate Amino Transferase 43 U/L (14-36); Blood Urea Nitrogen 12 mg/dL (7-17); Calcium 9.8 mg/dL (8.4-10.2); Carbon Dioxide 29 mmol/L (22-30); Chloride 100 mmol/L (98-107); Cholesterol 219 mg/dL (0-200); Estimated Glomerular Filt Rate > 60; Glucose 103 mg/dL (65-110); HDL Direct 65 mg/dL; Potassium 4.2 mmol/L (3.4-5.0); Sodium 138 mmol/L (137-145); Triglycerides 99 mg/dL (<150)
[2024-07-03 14:39] LABS: LDL Cholesterol Direct 123 mg/dL
== END 2024-07-03 09:28 | disposition home or self-care (01) ==
LOC: ANHGOSHLAB 09:28
PROVIDERS: PCP Family Medicine; Visit Provider Nurse Practitioner Family
DX: E78.5 Hyperlipidemia, unspecified (principal); I10 Essential (primary) hypertension
CPT/HCPCS: 36415; 80053; 80061; 85025

== ENCOUNTER 2025-01-08 08:44 | Emergency (ER) | payer MEDICARE, OTHER, SELFPAY ==
--- NOTE | ~2025-01-08 | XR_ITS ---
EXAMINATION: XR shoulder LT min 2V DATE: 01/08/2025 09:15 INDICATION: Left shoulder pain. TECHNIQUE: 5 views of left shoulder were obtained. COMPARISON: None. FINDINGS: Alignment is normal. No fracture. There is mild osteoarthritis of glenohumeral joint and ac romioclavicular joint. IMPRESSION: 1. Mild polyarticular osteoarthritis. Reviewed, dictated and finalized at location A. EN BOX MAKER
--- NOTE | 2025-01-08 08:49 | ED.UPPEXIN ---
HPI - Extremity Injury (Upper) General Chief Complaint: Extremity Injury, Upper Stated Complaint: Shoulder Pain Source: patient and RN notes reviewed Mode of arrival: ambulatory Limitations: no limitations History of Present Illness HPI narrative: Patient is a 69-year-old female who presents to [facility] with complaints of left shoulder pain. States that the pain is been persistent for the past week. The pain worsens with movement and positioning. She states that she is unable to fully lift her left arm due to the pain. She denies known injury. States that she has been unable to have full range of motion of her left shoulder for the past week. She denies any chest pain or shortness of breath. Denies any accompanying nausea or dizziness. Related Data Home Medications ?Medication ?Instructions ?Recorded ?Confirmed ?Last Taken ?Type cholecalciferol (vitamin D3) 125 125 mcg PO DAILY 04/04/20 07/11/24 Unknown History mcg (5,000 unit) capsule ibuprofen 200 mg capsule 200 mg PO Q6H PRN Pain 04/04/20 07/11/24 Unknown History biotin 10,000 mcg capsule 10,000 mcg PO DAILY 11/13/20 07/11/24 Unknown History calcium carbonate (Calcium 600) 600 mg PO BID 11/13/20 07/11/24 Unknown History Natural Vitamin E 180 mg PO DAILY 05/04/21 07/11/24 Unknown History cranberry 500 mg capsule 500 mg PO BID PRN Bladder Spasms 05/04/21 07/11/24 Unknown History magnesium oxide 400 mg PO DAILY 05/04/21 07/11/24 Unknown History albuterol sulfate 90 mcg/actuation 1 puff inhalation Q4H PRN 07/11/24 07/11/24 Unknown History aerosol inhaler Allergies Allergy/AdvReac Type Severity Reaction Status Date / Time strawberry Allergy Severe Difficulty Verified 01/08/25 08:52 Breathing Review of Systems Review of Systems: CONSTITUTIONAL: Denies fever, chills, or sweats. EYES: Denies visual changes, redness, or discharge. ENT: Denies otalgia and sore throat CARDIOVASCULAR: Denies chest pain, palpitations, or edema. RESPIRATORY: Denies cough or dyspnea. GASTROINTESTINAL: Denies abdominal pain, nausea, vomiting, or diarrhea. GENITOURINARY: Denies dysuria or hematuria. SKIN: Denies rash or itching. MUSCULOSKELETAL: Reports left shoulder pain. NEUROLOGIC: Denies headache, numbness, or weakness. Pertinent positives per HPI. [facility] Past Medical History Medical History Lipoma Vitamin D deficiency Family history of colon cancer in mother History of colon polyps Osteoporosis Essential (primary) hypertension Other and unspecified hyperlipidemia Stress incontinence in female Surgical History Surgical History Hx of tonsillectomy (~1957) Family History Family History Father Family history of premature coronary heart disease, Onset Age: 63 Hypertension Family history of elevated blood lipids Patient's father is Family history of cardiovascular disease Mother Carcinoma of colon Patient's mother is Family history of Alzheimer's disease Grandparent Family history of malignant neoplasm of cervix Social History Social History Smoking packs per day: 1 Smoking cigarettes per day: 20.0 Years smoked: 30 Smoking pack-years: 30.00 Smoking status: Former smoker Tobacco type: e-cigarettes/vaping Smoking end date: 11/28/93 Alcohol intake: former Substance use: never Substance use type: does not use Lack of Transportation: No Lack of Food: Never True Current Housing: I Have Housing Concerned About Future Housing: No Difficulty Paying Gas/Electric Bills: No Difficulty Paying for Meds: No Currently Unemployed: No Education: Associate Degree Difficulty w/ Childcare or Family Care: No Living arrangements: with family Additional living arrangements comments: Occupation/Education: retired Gender identity (if verbalized by the patient): Female Sexual Orientation (if Verbalized by the Patient): Straight or Heterosexual Spiritual care concerns: No Agree to blood products: Yes Comments At the time of my signature, I reviewed and agree with the nursing past medical, surgical, social, and family history. There is no relevant family history pertinent to the patient complaint. Exam Narrative: GENERAL: This is a well-nourished, well-developed patient, in no apparent distress. HEAD: normocephalic, atraumatic. EYES:Sclera clear/white. Vision is grossly intact. EARS: External ears normal. Hearing grossly intact. NOSE: External nose normal with no obvious nasal discharge, nares without redness, no rhinorrhea. THROAT: Mucous membranes moist, posterior pharynx clear. NECK: Neck supple, non-tender without lymphadenopathy, masses or thyromegaly. CARDIOVASCULAR: Regular rate and rhythm without murmurs, gallops, or rubs. RESPIRATORY: Clear to auscultation. Breath sounds equal bilaterally. No wheezes, rales, or rhonchi. GASTROINTESTINAL: Abdomen soft, non-tender, nondistended. Bowel sounds are active. No hepato-splenomegaly, or palpable masses. No guarding. SKIN: warm, intact with no suspicious lesions or rash, good texture and turgor. NEURO: awake, alert, and oriented to person, place and time. There were no obvious focal neurologic abnormalities. EXTREMITIES: Patient has limited range of motion of the left shoulder with inability to fully lift the left arm due to discomfort. She is neurovascularly intact distally. Sensation is intact. Motor function intact distally. There is no obvious swelling or deformity. Course Course Level of Care: Express Care Visit Vital Signs Vital signs: Vital Signs Temperature 98 F 01/08/25 08:55 Pulse Rate 87 01/08/25 08:55 Respiratory Rate 16 01/08/25 08:55 Blood Pressure 153/86 H 01/08/25 08:55 Pulse Oximetry 97 01/08/25 08:55 Temperature 98 F 01/08/25 08:55 Pulse Rate 87 01/08/25 08:55 Respiratory Rate 16 01/08/25 08:55 Blood Pressure 153/86 H 01/08/25 08:55 Pulse Oximetry 97 01/08/25 08:55 Reviewed Procedures Orthopedic Splinting/Casting Injury #1: Side: left Upper Extremity Injury Location: shoulder Upper Extremity Immobilizer: sling/shoulder immobilizer Splint: prefabricated Pre-Procedure Neuro Vascular Exam: normal Post-Procedure Neuro Vascular Exam: normal MDM - Extremity Injury (Upper) MDM Narrative Medical decision making narrative: Use the RICE method at home. May take ibuprofen and/or Tylenol if needed. If symptoms persist in 1 week after conservative treatment, follow-up with specialist. Differential Diagnosis Differential diagnosis: Likely dislocation of shoulder and other (shoulder sprain, arthritis of shoulder joint) Imaging Data Attestation: I personally reviewed and interpreted this imaging study as follows: Radiologist's impression: [facility] [address] [place] [address] XRay Report Signed Patient: Carmelina Obrien : 1955 MR#: [id number] Age: 69 Acct:[id number] Loc: [facility] ADM Date: 01/08/25Attending Dr: Ordering Physician: Deb Jacob APRN Date of Service: 01/08/25 Procedure(s): XR shoulder LT min 2V Accession Number(s): [id number] cc: Deb Jacob APRN; Frances Wong MD~ EXAMINATION: XR shoulder LT min 2V DATE: 01/08/2025 09:15 INDICATION: Left shoulder pain. TECHNIQUE: 5 views of left shoulder were obtained. COMPARISON: None. FINDINGS: Alignment is normal. No fracture. There is mild osteoarthritis of glenohumeral joint and acromioclavicular joint. IMPRESSION: 1. Mild polyarticular osteoarthritis. Reviewed, dictated and finalized at location A. PROJECT MANAGER Please be advised this is a medical document. It is intended for [id number] communication. It is written in medical language and may contain unfamiliar abbreviations or verbiage. Medical documents are intended to carry relevant information, facts as evident, and the clinical opinion of the practitioner at the time of the encounter. This report may have been done utilizing a voice recognition system. Attempts have been made to correct errors. However, there may be uncorrected grammatical, spelling, and recognition errors present. The file time of this note does not necessarily represent the time of service. Dictated By: Esteban Lopez MD 01/08/25916 Signed By: <Electronically signed by Esteban Lopez MD in OV> 01/08/25917 Critical Care Time Critical Care Time Critical Care Time: No Discharge Plan Discharge Clinical Impression: Osteoarthritis of left shoulder Qualifiers: Osteoarthritis type: unspecified Qualified Code(s): M19.012 - Primary osteoarthritis, left shoulder Patient Disposition: Home, Self-Care Condition: Stable Instructions: Osteoarthritis (ED), Shoulder Sprain (ED), P.R.I.C.E. Treatment (ED) Additional Instructions: Use the RICE method at home. May take ibuprofen and/or Tylenol if needed. If symptoms persist in 1 week after conservative treatment, follow-up with specialist. Patient Language: Greek Prescriptions: New naproxen 500 mg tablet 500 mg PO BID PRN (Reason: pain) Qty: 20 0RF No Action biotin 10,000 mcg capsule 10,000 mcg PO DAILY triamcinolone acetonide 0.5 % cream 1 applic topical BID Qty: 15 0RF albuterol sulfate 90 mcg/actuation HFA aerosol inhaler 1 puff inhalation Q4H PRN cranberry 500 mg Capsule 500 mg PO BID PRN (Reason: Bladder Spasms) magnesium oxide 400 mg magnesium Capsule 400 mg PO DAILY Natural Vitamin E 180 mg PO DAILY cholecalciferol (vitamin D3) 125 mcg (5,000 unit) capsule 125 mcg PO DAILY ibuprofen 200 mg capsule 200 mg PO Q6H PRN (Reason: Pain) calcium carbonate [Calcium 600] 600 mg calcium (1,500 mg) tablet 600 mg PO BID fluticasone propionate 110 mcg/actuation HFA aerosol inhaler See Rx Instructions .ROUTE .COMPLEX Qty: 36 3RF Dose Instruction: USE 2 INHALATIONS EVERY 12 HOURS, ADMINISTER WITH SPACER Rx Instructions: USE 2 INHALATIONS EVERY 12 HOURS, ADMINISTER WITH SPACER atorvastatin 10 mg tablet 10 mg PO QHS Qty: 90 1RF losartan 25 mg tablet 25 mg PO DAILY Qty: 90 1RF Follow-up/Referrals: Deidre Wong MD [Primary Care Provider] - Jose Guadalupe Davila MD [Physician] - Time of Disposition: 09:29
[2025-01-08 08:55] VITALS: BP 153/86; PULSE 87; RESP 16; TEMP 36.6; O2SAT 97
== END 2025-01-08 09:32 | disposition home or self-care (01) ==
PROVIDERS: Emergency Provider Nurse Practitioner; PCP Family Medicine
DX: M19.012 Primary osteoarthritis, left shoulder (principal); I10 Essential (primary) hypertension; M81.0 Age-related osteoporosis without current pathological fracture; E78.49 Other hyperlipidemia; E55.9 Vitamin D deficiency, unspecified
CPT/HCPCS: 73030; 99213; A4565; G0463

== ENCOUNTER 2025-08-30 13:20 | Outpatient (CLI) | payer MEDICARE, OTHER, SELFPAY ==
--- OUTSIDE RECORDS SUMMARY | 2025-08-30 13:23 | XMS_ITS | Encounter Summary ---
Author Organization [facility] Address [address] [place] [address] Care Team Providers Care Cyber Security Consultant Name Role Phone Unavailable Primary Care Provider Unavailabl e Encounter Details Date Type Department Care Team (Late st Contact Info) Description 04/09/2024 Lab Requisition [facility] - DermPath Lab [address] [place] [address] Yash Barker MD [facility] DERMAT[facility] [address] [place] [phone] Benign lipomatous neoplasm of skin and subcutaneous tissue of head, face and neck; Other disturbances of skin sensation Social History Tobacco Use Types Packs/Day Years Used Date Smoking Tobacco: Never Assessed Comments Unknown Sex and Gender Information Value Date Recorded Sex Assigned at Not on file Legal Sex Female 4:16 PM CDT Gender Identity Not on file Sexual Orientation Not on file documented as of this encounter Plan of Treatment Not on file documented as of this encounter Procedures Procedure Name Priority Date/Time Associated Diagnosis Comments DERMATOPATHOLOGY Routine 04/09/2024 12:0 0 AM CDT Benign lipomatous neoplasm of skin and subcutaneous tissue of head, face and neck Other disturbances of skin sensation documented in this encounter Results * DERMATOPATHOLOGY (04/09/2024 12:00 AM CDT) Case Report Dermatopathology Report Case: [id number] Authorizing Provider: Yash Barker MD Collected: 04/09/2024 12:00 AM Ordering Location: [facility] - Received: 04/11/2024 02:33 PM DermPath Lab Pathologist: Inocencia Jonas MD Specimen: Skin, left posterior neck 12:57 PM CDT DERMATOPATHOLOGY LABORATORY Final Diagnosis Specimen A. SKIN, left posterior neck: MATURE ADIPOSE TISSUE CONSISTENT WITH LIPOMA (D17.0) 12:57 PM CDT DERMATOPATHOLOGY LABORATORY at 1256 CDT Clinical History Lipoma. Check margins. 12:57 PM CDT DERMATOPATHOLOGY LABORATORY Gross Description Specimen A: Received is one formalin filled container labeled with the patient's name and designated left posterior neck. The specimen consists of three (3) pieces of skin [id number] mm. The specimen is serially sectioned and a customer operations representative section is submitted in cassette 1. Jar 1. 12:57 PM CDT DERMATOPATHOLOGY LABORATORY Microscopic Description Specimen A. SKIN, left posterior neck: There are typical adipocytes with minimal fibrous trabeculae. This lesion is present at the margin of the specimen. 12:57 PM CDT DERMATOPATHOLOGY LABORATORY Disclaimer An external and internal positive and negative controls are appropriate for the histochemical, immunohistochemical and immunofluorescence stain(s) in this case (if any), except where stated explicitly. The performance characteristics of the stain(s) cited in this report were developed and its performance characteristic determined by the Dermatopathology Laboratory at [facility], directed by Dr. Sandra Terry. These tests need not be, and therefore are not, approved by the [place] Food and Drug Administration. The tests are used for clinical purposes. Billing Codes Specimen Charges Stain Charges 52864 1 12:57 PM CDT DERMATOPATHOLOGY LABORATORY Embedded Images 12:57 PM CDT DERMATOPATHOLOGY LABORATORY Pathology/Cytolog y TISSUE SPECIMEN FROM SKIN / Unknown 04/09/2024 04/11/2024 2:33 PM CDT us Yash Barker MD LAB - PATHOLOGY/CYTOLOGY ERICK [facility]ITING Final Result DERMATOPATHOLOGY LABORATORY [facility] - Department of Dermatology [address] [phone] documented in this encounter Visit Diagnoses Diagnosis Benign lipomatous neoplasm of skin and subcutaneous tissue of head, face and neck Other disturbances of skin sensation documented in this encounter
--- OUTSIDE RECORDS SUMMARY | 2025-08-30 13:23 | XMS_ITS | Clinical Summary ---
Author Organization [facility] Address [address] [place] [address] Care Team Providers Care Bag Press Operator Name Role Phone Unavailable Primary Care Provider Unavailabl e Source Comments [facility],non-owned Affiliates and Associated Physician Practices is amultiple site organization consisting of ambulatory clinics and hospital sitesin [place], [place], [place] and [place]. This disclosure is being madepursuant to the Care Everywhere program and may not contain all information available regarding this patient. Last updated 18.[facility] Social History Tobacco Use Types Packs/Day Years Used Date Smoking Tobacco: Never Assessed Comments Unknown Sex and Gender Information Value Date Recorded Sex Assigned at Not on file Legal Sex Female 4:16 PM CDT Gender Identity Not on file Sexual Orientation Not on file Plan of Treatment Health Maintenance Due Date Last Done Comments BONE DENSITY TESTING 1955 COLOGUARD (AGES 45-75) - COL ON CA SCREENING 1955 COLON MONITORING 1955 COLONOSCOPY - COLON CA SCREENING 1955 CT COLONOGRAPHY - COLON CA SCREENING 1955 Colorectal Cancer Screening 1955 FIT - COLON CA SCREENING 1955 FLEX SIG - COLON CA SCREENING 1955 LIPID TESTING 1955 MAMMOGRAM 1955 MEDICARE AWV 12 MONTHS 1955 HEPATITIS C SCREENING 02/01/1971 DTAP/TDAP/TD VACCINES (1 - Tdap) 02/06/1972 PNEUMOCOCCAL VACCINE 50+ (1 of 1 - PCV) 2003 ZOSTER VACCINE (1 of 2) 2003 DEPRESSION SCREENING 11/28/2024 COVID-19 VACCINE ( - 2023-2 5 season) 2025 INFLUENZA VACCINE (#1) 2025 Respiratory Syncytial Virus (RSV) Vaccine Pt: or over 60 yrs (1 - 1-dose 75+ series) 02/06/2028 HEPATITIS B VACCINE Aged Out No longe r eligible based on patient's age to complete this topic HIB VACCINE Aged Out No longer eligi ble based on patient's age to complete this topic HPV VACCINE Aged Out No longer eligi ble based on patient's age to complete this topic MENINGOCOCCAL (Group B) VACC INE SHARED DECISION-MAKING Aged Out No longer eligibl e based on patient's age to complete this topic MENINGOCOCCAL GROUPS A/C/Y/W VACCINE Aged Out No longer eligible b ased on patient's age to complete this topic Insurance MEDICARE [facility]
[2025-08-30 18:18] LABS: Hematocrit 47.3 % (37.0-47.0); Hemoglobin 15.4 g/dL (12.0-15.0); Immature Granulocyte Percent A 0.2 % (0-0.5); Lymphocytes Absolute Auto 1.89 K/mm3 (0.9-3.2); Mean Corpuscular HGB Conc 32.6 g/dl (32-36); Mean Corpuscular Hemoglobin 29.1 pg (26-34); Mean Corpuscular Volume 89.4 fl (80-100); Nucleated Red Blood Cells Absolute Auto 0.000 K/mm3 (0.0-0.012); Nucleated Red Blood Cells Perc 0.0 % (0.0-0.2); Platelet Count Result 350 k/mm3 (150-375); Red Blood Count 5.29 M/mm3 (4.2-5.4); White Blood Count 8.4 K/mm3 (4.5-10.0)
[2025-08-30 18:23] LABS: Alanine Aminotransferase 12 U/L (6-35); Albumin Level 4.7 g/dL (3.5-5.1); Alkaline Phosphatase 101 U/L (38-126); Anion Gap 9 mmol/L (4-12); Aspartate Amino Transferase 43 U/L (14-36); Bilirubin,Total 1.4 mg/dL (0.2-1.3); Blood Urea Nitrogen 10 mg/dL (7-17); Calcium 9.9 mg/dL (8.4-10.2); Carbon Dioxide 28 mmol/L (22-30); Chloride 96 mmol/L (98-107); Cholesterol 213 mg/dL (0-200); Estimated Glomerular Filt Rate > 60; Glucose 105 mg/dL (65-110); HDL Direct 73 mg/dL; Potassium 5.3 mmol/L (3.4-5.0); Sodium 133 mmol/L (137-145); Total Protein 7.9 g/dL (6.3-8.2); Triglycerides 80 mg/dL (<150)
[2025-08-30 18:57] LABS: Thyroid Stimulating Hormone Reflex 0.047 uIU/mL (0.465-4.68)
[2025-08-30 19:22] LABS: Free T4 Free Thyroxine Reflex 1.17 ng/dL (0.78-2.19)
[2025-08-30 20:16] LABS: Total Triiodothyronine (T3) 1.22 NG/ML (0.82-1.58)
== END 2025-08-30 13:21 | disposition home or self-care (01) ==
LOC: ANHGOSHLAB 13:22
PROVIDERS: PCP Family Medicine; Visit Provider Nurse Practitioner Family
DX: E78.5 Hyperlipidemia, unspecified (principal); E55.9 Vitamin D deficiency, unspecified; I10 Essential (primary) hypertension
CPT/HCPCS: 36415; 80053; 80061; 82306; 84439; 84443; 84480; 85025